=== PATIENT | male | born 1980 | race Two or more races ===

== ENCOUNTER 2018-03-01 13:07 | Emergency (ER) | payer OTHER ==
[2018-03-01 13:26] VITALS: BP 113/72; PULSE 77; TEMP 98.8; BMI 36.6
[2018-03-01] MEDS ORDERED: DIPHTH,PERTUSS(ACELL),TET 0.5 ML DISP.SYRIN IM ONE (14:13)
[2018-03-01] MEDS ORDERED: IBUPROFEN 400 MG TABLET (FP) PO ONE ×2 (14:14→14:25)
--- NOTE | 2018-03-01 14:22 | PDOC ---
History of Present Illness - General Chief Complaint: Pain Stated Complaint: LT LEG INJURY Time Seen by Provider: 03/01/18 14:08 History Source: Patient Exam Limitations: No Limitations - History of Present Illness Initial Comments: 03/01/18 14:14 Patient is a 37-year-old male with no past medical history who presents to the emergency department today for left leg pain status post mechanical trip and fall. Patient states he slipped down a step and hit his left ponce on a metal shelf. He notes that he has some scrapes to the ponce. He states that the leg is tender to touch. He is able to ambulate at this time without any changes to the way he walks. Denies fevers, chills, LOC, head trauma, numbness and tingling to the extremity, weakness to the extremity. Past History - Travel Traveled outside of the country in the last 30 days: No Close contact w/someone who was outside of country & ill: No - Past Medical History Allergies/Adverse Reactions: Allergies Allergy/AdvReac Type Severity Reaction Status Date / Time No Known Allergies Allergy Verified 03/01/18 13:24 Home Medications: Ambulatory Orders Ibuprofen 800 mg PO TID #30 tablet 03/01/18 COPD: No - Surgical History Abdominal Surgery: Yes - Suicide/Smoking/Psychosocial Hx Smoking History: Never smoked Have you smoked in the past 12 months: No Information on smoking cessation initiated: No Hx Alcohol Use: No Drug/Substance Use Hx: No Substance Use Type: Alcohol Review of Systems - Review of Systems Able to Perform ROS?: Yes Comments:: 03/01/18 14:12 CONSTITUTIONAL: Absent: fever, chills, diaphoresis, generalized weakness, malaise, loss of appetite CARDIOVASCULAR: Absent: chest pain, loss of consciousness, palpitations, irregular heart rate, peripheral edema MUSCULOSKELETAL: Present: L leg pain Absent: myalgia, arthralgia, joint swelling SKIN: Absent: rash, itching, pallor NEUROLOGIC: Absent: headache, focal weakness or paresthesias, dizziness, unsteady gait, seizure, mental status changes, bladder or bowel incontinence PSYCHIATRIC: Absent: anxiety, depression, suicidal or homicidal ideation, hallucinations. Is the patient limited [place]uran proficient: No *Physical Exam - Vital Signs Last Vital Signs Temp Pulse Resp BP Pulse Ox 98.8 F 77 18 113/72 100 03/01/18 13:18 03/01/18 13:18 03/01/18 13:18 03/01/18 13:18 03/01/18 13:18 - Physical Exam Comments: 03/01/18 14:12 GENERAL: Well developed, well nourished. Awake and alert. No acute distress. HEENT: Normocephalic, atraumatic. PERRLA, EOMI. No conjunctival pallor. Sclera are non- icteric. Moist mucous membranes. Oropharynx is clear. NECK: Supple. Full ROM. No JVD. Carotid pulses 2+ and symmetric, without bruits. No thyromegaly. No lymphadenopathy. CARDIOVASCULAR: Regular rate and rhythm. No murmurs, rubs, or gallops. Distal pulses are 2+ and symmetric. PULMONARY: No evidence of respiratory distress. Lungs clear to auscultation bilaterally. No wheezing, rales or rhonchi. ABDOMINAL: Soft. Non-tender. Non-distended. No rebound or guarding. No organomegaly. Normoactive bowel sounds. MUSCULOSKELETAL Normal range of motion at all joints. No bony deformities or tenderness. No CVA tenderness. EXTREMITIES: No cyanosis. No clubbing. No edema. No calf tenderness. SKIN: Warm and dry. Normal capillary refill. No rashes. No jaundice. NEUROLOGICAL: Alert, awake, appropriate. Cranial nerves 2-12 intact. No deficits to light touch and temperature in face, upper extremities and lower extremities. No motor deficits in the in face, upper extremities and lower extremities. Normoreflexic in the upper and lower extremities. Normal speech. Toes are down- going bilaterally. Gait is normal without ataxia. PSYCHIATRIC: Cooperative. Good eye contact. Appropriate mood and affect. *DC/Admit/Observation/Transfer Diagnosis at time of Disposition: Leg pain, left, Abrasion - Discharge Dispostion Disposition: HOME Condition at time of disposition: Stable Decision to Admit order: No - Referrals Referrals: Dennis Howard MD [Staff Physician] - - Patient Instructions Printed Discharge Instructions: DI for Leg Pain Additional Instructions: Your x-ray is negative for for fracture Your pain is due to falling You may take Motrin 800mg every 8 hours as needed for pain Keep the leg clean and dry. You may put bacitracin on the leg once a day Your tetanus shot was updated today Follow up with your primary care doctor Return to the ED if your pain gets worse, if you cannot walk, or if you have any changes in your symptoms. Nuestra radiografa es negativa para la fractura. Tu dolor se debe a la cada. Puede brandan Motrin 800 mg cada 8 horas segn sea necesario para el dolor. Mantenga la pierna limpia y seca. Puede poner bacitracina en la pierna keira vez al da. Tu vacuna contra el ttanos fue actualizada hoy Donavan un seguimiento con stahl mdico de atencin primaria. Regrese a la radames de urgencias si stahl dolor empeora, si no puede caminar o si tiene algn cambio en latricia sntomas. - Post Discharge Activity Forms/Work/School Notes: Back to Work
== END 2018-03-01 15:15 | disposition home or self-care (01) ==
LOC: JERFT 13:07 → JER 13:07 → JERFT 15:15
PROC: 3E0234Z Introduction of Serum, Toxoid and Vaccine into Muscle, Percutaneous Approach (ICD-10-PCS; principal; 2018-03-01)
DX: M79.662 Pain in left lower leg (principal)
CPT/HCPCS: 73590-TC-LT-FY; 90715; 99281-25